=== PATIENT | female | born 1990 | race Caucasian/White ===

== ENCOUNTER 2017-09-03 02:30 | Outpatient (CLI) | payer OTHER, SELFPAY ==
[2017-09-03 03:00] VITALS: BMI 34.0
[2017-09-03] MEDS: Methylergonovine 0.2 MG/ML Ampul IM (05:55)
[2017-09-03] MEDS: oxyCODONE 5 MG Tablet PO (06:05)
[2017-09-03] MEDS: Lactated Ringers 1,000 ML 999 ML IV (06:25)
[2017-09-03] MEDS: Oxytocin 30 units/NS 500 ml 30 UNITS/500 ML IV.SOLN 334 UNITS IV ×2 (06:30→08:30)
[2017-09-03 06:37] LABS: Hematocrit 32.9 % (37-47); Hemoglobin 11.2 g/dl (12.0-15.0); Mean Corpuscular Hgb 30.9 pg (27.0-32.0); Mean Corpuscular Volume 90.6 fL (81-99); Mean Platelet Vol. 9.4 fl (6.2-12.0); Platelet Count 280 K/mm3 (150-450); RBC Distribution Width SD 43.1 fl (35.1-43.9); Red Blood Count 3.63 M/mm3 (4.2-5.4); White Blood Count 18.1 K/mm3 (4.4-11.0)
[2017-09-03 06:41] LABS: Scan Indicated on CBC? Y/N NO
--- NOTE | 2017-09-03 07:58 | OB.TRI.NOTE ---
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 she had an uncomplicated and delivery other than the laceration. bleeding is minimal to moderate. 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 Negative for: Thyromegaly, Lymphadenopathy Cardiovascular: Regular rate Lungs: Normal air movement Abdomen: Soft, Non Tender, - - FF at umbilicus MANAGER GYN: Normal external genitalia - 2nd degree perineal laceration noted Impression/Plan 26 yo s/p at home with laceration that needs repaired betadine prepped area and injected with 1% lidocaine. 6 cm laceration repaired in the usual fashion with 3-0 vicryl rapide. additional figure of eight stitch placed left periurethral. ebl 150 cc. patient monitored given IVFs and cbc drawn, one dose methergine and pitocin given. discharged to home
--- NOTE | 2017-09-03 08:21 | OB.TRI.HP_ITS ---
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 she had an uncomplicated and delivery other than the laceration. bleeding is minimal to moderate. 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 6 cm laceration repaired in the usual fashion with 3-0 vicryl rapide. additional figure of eight stitch placed left periurethral. ebl 150 cc. patient monitored given IVFs and cbc drawn, one dose methergine and pitocin given. discharged to home
== END 2017-09-03 08:50 | disposition home or self-care (01) ==
LOC: WPOUT 03:37 → WP 03:37
PROVIDERS: Family Provider Family Medicine; PCP Family Medicine; Visit Provider Obstetrics & Gynecology
DX: O70.1 Second degree perineal laceration during delivery (principal); Z3A.00 Weeks of gestation of pregnancy not specified
CPT/HCPCS: 59300; 96365; 36415; 85027; 96372; 99218; J7120; G0378